=== PATIENT | female | born 1940 | race Caucasian/White ===

== ENCOUNTER 2016-06-12 14:45 | Inpatient (IN) | payer MEDICARE ==
[2016-06-12] VITALS (10 sets, daily range): BP systolic 132–177; BP diastolic 42–90
[~2016-06-12] VITALS: Ht 152.4 cm; Wt 78.9 kg
--- NOTE | ~2016-06-12 | CON ---
[place], [place] REPORT OF CONSULTATION NAME: PAUL BRAXTON I UNIT #: [id number] ROOM: 415 DOCTOR: HEATHER BLACK,TERRELL BIRTHDATE: [birth year] DOS: 06/15/2016 GASTROENDOSCOPIC REPORT HISTORY OF PRESENT ILLNESS: A 75-year-old patient who has presented with multiple medical problems, among which has been not feeling well, severe anemia, finding of H and H of 6 and 21, microcytic indices and status post multitransfusion, renal failure with BUN and creatinine of 54 and 5.7. Reticulocyte count of 2.0. CT scan of the chest and abdomen and pelvic, cholelithiasis, no hematoma, no distinct acute thoracic pathology. Urine culture benign. H and H post-transfusion 8 and 25. Renal ultrasound noticed increased thinning of the renal cortices was noticed. Comprehensive metabolic panel: Potassium 5.8. Liver function tests within normal limit. PAST MEDICAL HISTORY: Associated diabetes, anemia, renal failure. SOCIAL HISTORY: Nonsmoker, nonalcohol consumer. FAMILY HISTORY: Noncontributory. ALLERGIES: To no medication. PAST SURGICAL HISTORY: Noncontributory. MEDICATIONS: List has been reviewed. REVIEW OF SYSTEMS: In general, HEENT: Denies double vision, blurred vision. RESPIRATORY: Denies acute shortness of breath. CARDIOVASCULAR: Denies acute chest pain. DIGESTIVE SYSTEM: No hematemesis, no hematochezia. PHYSICAL EXAMINATION: VITAL SIGNS: Stable. HEENT: Head normocephalic, nontraumatic. Mouth and buccal mucosa benign. NECK: Supple, no thyromegaly. CHEST: Symmetric anatomy, equal expansion. No wheeze, no rhonchi. HEART: Normal sinus rhythm, no gallop, no murmur. ABDOMEN: Soft. No hepato-organomegaly. Bowel sounds present. No pulsatile mass. EXTREMITIES: No cyanosis, no pedal edema. NEUROLOGIC: Alert, oriented to time, place, person. IMPRESSION: Severe anemia, renal failure, diabetes mellitus. PLAN AND DISCUSSION: EGD, colonoscopy reassessment of the patient status post multitransfusion, workup in progress. [place], [place] REPORT OF CONSULTATION NAME: PAUL BRAXTON I UNIT #: [id number] ROOM: 415 DOCTOR: HEATHER BLACK,TERRELL BIRTHDATE: [birth year] TERRELL ROMERO MD CM:CONSTR:REPORT OF CONSULTATION 1225 06/16/16 0043 interface
--- NOTE | ~2016-06-12 | O ---
[place], [place] OPERATIVE NOTE NAME: PAUL BRAXTON I UNIT #: [id number] ROOM: 415 DOCTOR: TERRELL ROMERO MD BIRTHDATE: [birth year] DOS: A 75-year-old patient who has presented with chief complaint of epigastric abdominal pain, guaiac positivity, anemia, drop in H and H, status post transfusion. PROCEDURE: Today's procedure part of investigation is panendoscopy and colonoscopy. PREMEDICATION: Versed and Diprivan. SCOPE: Olympus forward-viewing gastroscope Q10 video. REPORT: After putting the patient in the left lateral position and after application of lubricant to the scope, the scope was introduced. Thereafter, under direct visualization, I advanced through the length of esophagus without difficulty. Small hiatal hernia with approximately 2 cm was noticed. Gastric pouch was entered. Gastritis, gastric erosions, degraded blood in the gastric pouch was identified. Duodenal bulb, second and third part within normal limits. Scope was gradually withdrawn from a lesser curvature after photographic series and biopsies. The patient tolerated the procedure well. IMPRESSION: Gastritis, gastric erosions, hiatal hernia. PLAN AND DISCUSSION: Protonix 40 mg daily. Supportive management. On the other hand we are going to proceed with colonoscopy. TERRELL ROMERO MD CM:OPRECORD:OPERATIVE NOTE 1251 1439 TERRELL ROMERO MD 06/15/16 1440 interface
--- NOTE | ~2016-06-12 | O ---
[place], [place] OPERATIVE NOTE NAME: PAUL BRAXTON I UNIT #: [id number] ROOM: 415 DOCTOR: TERRELL ROMERO MD BIRTHDATE: [birth year] DOS: This patient is a 75-year-old patient, who has presented with chief complaint of epigastric abdominal pain, anemia status post transfusion, GI bleed. PROCEDURE: Today's procedure part of investigation is colonoscopy plus polypectomy. PREMEDICATION: Versed and Diprivan. SCOPE: Olympus forward-viewing colonoscope 10L video. REPORT: After putting the patient in the left lateral position and after application of lubricant to rectal pouch and digital examination, scope was introduced. Thereafter, under direct visualization, I advanced through the length of colon without difficulty. Polypoid lesion broad base in sigmoid colon was identified with the snare was polypectomized and site was deeply coagulated. Base of the cecum explored, appendiceal orifice identified, and ileocecal valve was defined. The patient extubated, tolerated procedure well. IMPRESSION: Sigmoid colon polyp, status post snare polypectomy. PLAN AND DISCUSSION: This patient's source of GI bleed has been upper GI and she will be managed with Protonix 40 mg every day. I thank you very much indeed for your kind referral. TERRELL ROMERO MD CM:OPRECORD:OPERATIVE NOTE 1251 1440 TERRELL ROMERO MD 06/15/16 1441 interface
[2016-06-12 15:44] LABS: BASO % 0.2 % (0.0-1.0); EOS % 0.4 % (1.0-4.0); HEMATOCRIT 21.8 % (37.0-47.0); HEMOGLOBIN 6.7 g/dl (12.0-16.0); LYMPH # 0.7 10*3/uL (1.3-4.4); LYMPH % 15.6 % (27.0-41.0); MEAN CELL VOLUME 95.2 fl (81.0-99.0); MEAN CORPUSCULAR HGB 29.3 pg (27.0-31.0); MEAN CORPUSCULAR HGB CONC 30.7 g/dl (33.0-37.0); MONO # 0.4 10*3/uL (0.1-1.0); MONO % 9.1 % (3.0-9.0); NEUT # 3.4 10*3/uL (2.3-7.9); NEUT % 74.3 % (47.0-73.0); PLATELET COUNT AUTOMATED 271 10*3/uL (130-400); RED BLOOD COUNT 2.29 10*6/uL (4.10-5.10); RED CELL DISTRI WIDTH 15.7 % (0-14.5); WHITE BLOOD COUNT 4.6 10*3/uL (4.8-10.8)
[2016-06-12 15:59] LABS: ALBUMIN 2.5 gm/dl (3.1-4.5); BILIRUBIN, TOTAL 0.2 mg/dl (0.2-1.0); POTASSIUM 5.8 mmol/L (3.5-5.1)
[2016-06-12 16:08] LABS: BILIRUBIN NEGATIVE (NEGATIVE); BLOOD 1+ (NEGATIVE); CLARITY SL CLOUDY (CLEAR); COLOR YELLOW (YELLOW); GLUCOSE 2+ (NEGATIVE); KETONE NEGATIVE (NEGATIVE); LEUKO ESTERASE NEGATIVE (NEGATIVE); NITRITE NEGATIVE (NEGATIVE); PH 5.5 (5.0-9.0); PROTEIN 3+ (NEGATIVE); UROBILINOGEN 0.2 E.U./dl (0.2-1.0)
[2016-06-12 16:20] LABS: BACTERIA 1+; EPITHELIAL CELLS TNTC; URINE REFLEX COMMENT YES (NO); YEAST 2+
[2016-06-12 18:34] LABS: IRF 15.3 % (2.4-13.3); RET-He 31.2 pg (32.1-37.9); RETICULOCYTE % 2.2 % (0.50-2.50)
[2016-06-12] MEDS ORDERED: CARDURA4 MG PO (18:37)
[2016-06-12] MEDS ORDERED: AMLODIPINE BESY1 TAB PO (18:38)
[2016-06-12] MEDS ORDERED: LOPRESSOR100 M1 PO (18:39)
[2016-06-12] MEDS ORDERED: FEOSOL325 MG PO (18:43)
[2016-06-12] MEDS ORDERED: VITAMIN D1000 IU PO (18:44)
[2016-06-12] MEDS ORDERED: NOVOLOG 70/30 M10 ML SC (18:48)
[2016-06-12 18:56] LABS: IRON 29 ug/dL (50-170)
[2016-06-12 19:36] LABS: ALBUMIN 2.6 gm/dl (3.1-4.5); BILIRUBIN, TOTAL 0.2 mg/dl (0.2-1.0); POTASSIUM 5.8 mmol/L (3.5-5.1); TOTAL PROTEIN 6.1 gm/dL (6.4-8.2)
[2016-06-12 20:11] LABS: FERRITIN 66.5 ng/mL (10.0-291.0)
[2016-06-12 20:12] LABS: FOLIC ACID 13.41 ng/mL (>5.38)
[2016-06-13] VITALS: BP 157/48
[2016-06-13 00:48] LABS: CKMB 2.8 ng/ml (0.5-3.6)
[2016-06-13 00:50] LABS: TROPONIN I 0.087 ng/ml (<0.045)
[2016-06-13 04:00] VITALS: BP 163/57
[2016-06-13 06:27] LABS: BASO % 0.4 % (0.0-1.0); EOS # 0.1 10*3/uL (0.0-0.4); EOS % 2.3 % (1.0-4.0); HEMATOCRIT 22.4 % (37.0-47.0); HEMOGLOBIN 7.2 g/dl (12.0-16.0); LYMPH # 0.9 10*3/uL (1.3-4.4); LYMPH % 17.2 % (27.0-41.0); MEAN CELL VOLUME 94.1 fl (81.0-99.0); MEAN CORPUSCULAR HGB 30.3 pg (27.0-31.0); MEAN CORPUSCULAR HGB CONC 32.1 g/dl (33.0-37.0); MEAN PLATELET VOLUME 10.2 fl (9.6-12.3); MONO # 0.5 10*3/uL (0.1-1.0); NEUT # 3.7 10*3/uL (2.3-7.9); NEUT % 70.7 % (47.0-73.0); PLATELET COUNT AUTOMATED 264 10*3/uL (130-400); RED BLOOD COUNT 2.38 10*6/uL (4.10-5.10); WHITE BLOOD COUNT 5.2 10*3/uL (4.8-10.8)
[2016-06-13 06:38] LABS: CKMB 2.7 ng/ml (0.5-3.6)
[2016-06-13 06:48] LABS: TROPONIN I 0.061 ng/ml (<0.045)
[2016-06-13 06:52] LABS: INTERNATIONAL NORM RATIO 0.9 (2.0-3.5); PROTHROMBIN TIME 9.9 SECONDS (9.0-12.4)
[2016-06-13 06:56] LABS: ALBUMIN 2.2 gm/dl (3.1-4.5); BILIRUBIN, TOTAL 0.2 mg/dl (0.2-1.0); MAGNESIUM 2.1 mg/dL (1.5-2.1); PHOSPHOROUS 7.6 mg/dL (2.5-4.9); POTASSIUM 5.9 mmol/L (3.5-5.1); TOTAL PROTEIN 5.3 gm/dL (6.4-8.2)
[2016-06-13 07:02] LABS: FREE T4 0.84 ng/dl (0.76-1.46); THYROID STIM HORMONE (HS) 2.52 uIU/ml (0.358-4.75)
[2016-06-13 07:03] LABS: HEMOGLOBIN A1c 6.2 % (4.8-5.6)
[2016-06-13 07:57] LABS: VITAMIN D, 25-HYDROXY 11.5 ng/mL (30-100)
[2016-06-13 07:58] LABS: FOLIC ACID 11.59 ng/mL (>5.38)
[2016-06-13 08:00] VITALS: BP 159/76
[2016-06-13 09:05] LABS: BILIRUBIN NEGATIVE (NEGATIVE); BLOOD 1+ (NEGATIVE); CLARITY CLOUDY (CLEAR); COLOR YELLOW (YELLOW); GLUCOSE 1+ (NEGATIVE); KETONE NEGATIVE (NEGATIVE); LEUKO ESTERASE 1+ (NEGATIVE); NITRITE NEGATIVE (NEGATIVE); PROTEIN 3+ (NEGATIVE); SPECIFIC GRAVITY 1.015 (1.005-1.030); UROBILINOGEN 0.2 E.U./dl (0.2-1.0)
[2016-06-13 10:28] LABS: BACTERIA 3+; COARSE GRANULAR CAST 0-2; URINE REFLEX COMMENT YES (NO); WBC TNTC wbc/hpf (0-5)
[2016-06-13 12:00] VITALS: BP 140/43
[2016-06-13 12:43] LABS: TROPONIN I 0.042 ng/ml (<0.045)
[2016-06-13 16:00] VITALS: BP 125/80
[2016-06-13 20:00] VITALS: BP 151/58
[2016-06-14] VITALS (10 sets, daily range): BP systolic 137–168; BP diastolic 45–64
[2016-06-14 00:28] LABS: BILIRUBIN NEGATIVE (NEGATIVE); BLOOD TRACE-LYSED (NEGATIVE); CLARITY SL CLOUDY (CLEAR); COLOR YELLOW (YELLOW); GLUCOSE 2+ (NEGATIVE); KETONE NEGATIVE (NEGATIVE); LEUKO ESTERASE TRACE (NEGATIVE); NITRITE NEGATIVE (NEGATIVE); PH 5.5 (5.0-9.0); PROTEIN 3+ (NEGATIVE); UROBILINOGEN 0.2 E.U./dl (0.2-1.0)
[2016-06-14 00:37] LABS: BACTERIA 3+; EPITHELIAL CELLS 21-30; WBC 41-50 wbc/hpf (0-5)
[2016-06-14 00:38] LABS: URINE TP/CRE RATIO 7.3 (<0.21)
[2016-06-14 07:06] LABS: BASO % 0.4 % (0.0-1.0); EOS # 0.2 10*3/uL (0.0-0.4); EOS % 3.3 % (1.0-4.0); HEMATOCRIT 20.7 % (37.0-47.0); HEMOGLOBIN 6.5 g/dl (12.0-16.0); LYMPH # 1.1 10*3/uL (1.3-4.4); LYMPH % 25.1 % (27.0-41.0); MEAN CORPUSCULAR HGB 29.8 pg (27.0-31.0); MEAN CORPUSCULAR HGB CONC 31.4 g/dl (33.0-37.0); MEAN PLATELET VOLUME 10.5 fl (9.6-12.3); MONO # 0.5 10*3/uL (0.1-1.0); MONO % 11.5 % (3.0-9.0); NEUT # 2.7 10*3/uL (2.3-7.9); NEUT % 59.3 % (47.0-73.0); PLATELET COUNT AUTOMATED 272 10*3/uL (130-400); RED BLOOD COUNT 2.18 10*6/uL (4.10-5.10); WHITE BLOOD COUNT 4.5 10*3/uL (4.8-10.8)
[2016-06-14 07:35] LABS: POTASSIUM 4.9 mmol/L (3.5-5.1)
[2016-06-15] VITALS (7 sets, daily range): BP systolic 120–188; BP diastolic 42–66
[2016-06-15 05:53] LABS: POTASSIUM 4.4 mmol/L (3.5-5.1)
[2016-06-15 05:59] LABS: BASO % 0.3 % (0.0-1.0); EOS # 0.1 10*3/uL (0.0-0.4); EOS % 3.9 % (1.0-4.0); HEMATOCRIT 25.4 % (37.0-47.0); HEMOGLOBIN 8.2 g/dl (12.0-16.0); LYMPH # 0.8 10*3/uL (1.3-4.4); LYMPH % 21.3 % (27.0-41.0); MEAN CELL VOLUME 93.4 fl (81.0-99.0); MEAN CORPUSCULAR HGB 30.1 pg (27.0-31.0); MEAN CORPUSCULAR HGB CONC 32.3 g/dl (33.0-37.0); MEAN PLATELET VOLUME 10.6 fl (9.6-12.3); MONO # 0.7 10*3/uL (0.1-1.0); NEUT % 55.9 % (47.0-73.0); PLATELET COUNT AUTOMATED 261 10*3/uL (130-400); RED BLOOD COUNT 2.72 10*6/uL (4.10-5.10); RED CELL DISTRI WIDTH 14.9 % (0-14.5); WHITE BLOOD COUNT 3.6 10*3/uL (4.8-10.8)
[2016-06-15 21:10] LABS: ANTI-THROMBIN III ACTIVITY 112 % (75-135); LUPUS DRVVT 47.9 sec (0.0-47.0); PROTEIN S, FREE 117 % (57-157); PROTEIN S, TOTAL 102 % (60-150); PTT-LA 35.1 sec (0.0-43.6)
[2016-06-16] VITALS: BP 155/47
[2016-06-16 06:30] LABS: HEPATITIS C VIRUS ANTIBODY 0.1 s/co (0.0-0.9)
[2016-06-16 07:34] LABS: BASO % 0.2 % (0.0-1.0); EOS # 0.1 10*3/uL (0.0-0.4); EOS % 3.1 % (1.0-4.0); HEMATOCRIT 24.2 % (37.0-47.0); HEMOGLOBIN 7.8 g/dl (12.0-16.0); LYMPH # 0.9 10*3/uL (1.3-4.4); LYMPH % 19.7 % (27.0-41.0); MEAN CORPUSCULAR HGB 29.7 pg (27.0-31.0); MEAN CORPUSCULAR HGB CONC 32.2 g/dl (33.0-37.0); MEAN PLATELET VOLUME 10.7 fl (9.6-12.3); MONO # 0.7 10*3/uL (0.1-1.0); MONO % 14.6 % (3.0-9.0); NEUT # 2.8 10*3/uL (2.3-7.9); PLATELET COUNT AUTOMATED 262 10*3/uL (130-400); RED BLOOD COUNT 2.63 10*6/uL (4.10-5.10); RED CELL DISTRI WIDTH 14.8 % (0-14.5); WHITE BLOOD COUNT 4.5 10*3/uL (4.8-10.8)
[2016-06-16 08:00] VITALS: BP 186/67
[2016-06-16 08:12] LABS: COMPLEMENT C4 001834 26 mg/dL (14-44)
[2016-06-16 08:41] VITALS: BP 134/60
[2016-06-16 08:43] LABS: ALBUMIN 2.3 gm/dl (3.1-4.5); PHOSPHOROUS 7.8 mg/dL (2.5-4.9); POTASSIUM 4.3 mmol/L (3.5-5.1)
[2016-06-16 12:00] VITALS: BP 149/58
[2016-06-16 13:10] LABS: LUPUS REFLEX INTERPRETATION Comment: (.)
[2016-06-16 16:00] VITALS: BP 167/60
[2016-06-16 16:10] LABS: FREE KAPPA LIGHT CHAINS 141.74 mg/L (3.30-19.40); KAPPA/LAMBDA RATIO 2.06 (0.26-1.65)
[2016-06-16 17:07] LABS: ALBUMIN, URINE 59.3 % (.); GAMMA GLOBULIN, URINE 13.4 % (.); M-SPIKE, % Not Observed % (Not Observed); PROTEIN,TOTAL - URINE RANDOM 381.1 mg/dL (Not Estab.)
[2016-06-16 20:00] VITALS: BP 157/56
[2016-06-17] VITALS: BP 152/49
[2016-06-17 06:10] LABS: BASO % 0.5 % (0.0-1.0); EOS # 0.1 10*3/uL (0.0-0.4); EOS % 1.3 % (1.0-4.0); HEMATOCRIT 24.4 % (37.0-47.0); LYMPH # 0.5 10*3/uL (1.3-4.4); LYMPH % 13.3 % (27.0-41.0); MEAN CELL VOLUME 92.8 fl (81.0-99.0); MEAN CORPUSCULAR HGB 30.4 pg (27.0-31.0); MEAN CORPUSCULAR HGB CONC 32.8 g/dl (33.0-37.0); MEAN PLATELET VOLUME 10.6 fl (9.6-12.3); MONO # 0.6 10*3/uL (0.1-1.0); MONO % 15.1 % (3.0-9.0); NEUT # 2.6 10*3/uL (2.3-7.9); NEUT % 69.3 % (47.0-73.0); PLATELET COUNT AUTOMATED 243 10*3/uL (130-400); RED BLOOD COUNT 2.63 10*6/uL (4.10-5.10); RED CELL DISTRI WIDTH 14.6 % (0-14.5); WHITE BLOOD COUNT 3.8 10*3/uL (4.8-10.8)
[2016-06-17 06:26] LABS: ALBUMIN 2.2 gm/dl (3.1-4.5); MAGNESIUM 1.7 mg/dL (1.5-2.1); PHOSPHOROUS 6.6 mg/dL (2.5-4.9)
[2016-06-17 08:00] VITALS: BP 142/56
[2016-06-17 11:07] LABS: GLOMERULAR BASEMENT 082719 3 units (0-20)
[2016-06-17 12:00] VITALS: BP 138/57
[2016-06-17] MEDS ORDERED: CALCIUM CARBON500 M1 PO (15:19)
[2016-06-17] MEDS ORDERED: FUROSEMIDE40 MG PO (15:19)
[2016-06-17] MEDS ORDERED: VITAMIN D50000 I3 PO (15:19)
[2016-06-17 16:00] VITALS: BP 135/59
== END 2016-06-17 16:52 | disposition home or self-care (01) | DRG 377 ==
LOC: ED 14:45 → 4E 17:04 → EDHOLD 17:04 → ICCU 18:07 → 4E 06-13 13:27
PROVIDERS: Emergency Medicine; Family Medicine; Hospitalist; Internal Medicine; Internal Medicine Hospice and Palliative Medicine; Internal Medicine Nephrology
PROC: 30233N1 Transfusion of Nonautologous Red Blood Cells into Peripheral Vein, Percutaneous Approach (ICD-10-PCS; principal; 2016-06-12)
PROC: 0DBN8ZZ Excision of Sigmoid Colon, Via Natural or Artificial Opening Endoscopic (ICD-10-PCS; 2016-06-15)
PROC: 0DB68ZX Excision of Stomach, Via Natural or Artificial Opening Endoscopic, Diagnostic (ICD-10-PCS; 2016-06-15)
DX: K29.01 Acute gastritis with bleeding (principal); N17.0 Acute kidney failure with tubular necrosis; E43 Unspecified severe protein-calorie malnutrition; E87.2 Acidosis; N25.81 Secondary hyperparathyroidism of renal origin; E87.5 Hyperkalemia; E11.65 Type 2 diabetes mellitus with hyperglycemia; D50.9 Iron deficiency anemia, unspecified; E55.9 Vitamin D deficiency, unspecified; I10 Essential (primary) hypertension; R00.1 Bradycardia, unspecified; E83.39 Other disorders of phosphorus metabolism; R80.9 Proteinuria, unspecified; K44.9 Diaphragmatic hernia without obstruction or gangrene; Z82.49 Family history of ischemic heart disease and other diseases of the circulatory system; Z84.89 Family history of other specified conditions; Z79.4 Long term (current) use of insulin; Z79.899 Other long term (current) drug therapy; Z98.49 Cataract extraction status, unspecified eye; Z68.33 Body mass index [BMI] 33.0-33.9, adult

== ENCOUNTER → 2016-06-24 | Outpatient (CLI) | payer MEDICARE ==
[~2016-06-24] MED LIST: AMLODIPINE BESY1 TAB PO; CALCIUM CARBON500 M1 PO; CARDURA4 MG PO; FEOSOL325 MG PO; FUROSEMIDE40 MG PO; LOPRESSOR100 M1 PO; NOVOLOG 70/30 M10 ML SC; VITAMIN D1000 IU PO; VITAMIN D50000 I3 PO
[2016-06-24 11:14] LABS: BASO % 0.2 % (0.0-1.0); EOS # 0.1 10*3/uL (0.0-0.4); EOS % 2.4 % (1.0-4.0); HEMATOCRIT 23.8 % (37.0-47.0); HEMOGLOBIN 7.4 g/dl (12.0-16.0); LYMPH % 17.6 % (27.0-41.0); MEAN CELL VOLUME 95.2 fl (81.0-99.0); MEAN CORPUSCULAR HGB 29.6 pg (27.0-31.0); MEAN CORPUSCULAR HGB CONC 31.1 g/dl (33.0-37.0); MEAN PLATELET VOLUME 11.2 fl (9.6-12.3); MONO # 0.7 10*3/uL (0.1-1.0); NEUT # 3.9 10*3/uL (2.3-7.9); NEUT % 67.3 % (47.0-73.0); PLATELET COUNT AUTOMATED 276 10*3/uL (130-400); RED CELL DISTRI WIDTH 14.5 % (0-14.5); WHITE BLOOD COUNT 5.7 10*3/uL (4.8-10.8)
[2016-06-24 11:40] LABS: ALBUMIN 2.2 gm/dl (3.1-4.5); PHOSPHOROUS 6.2 mg/dL (2.5-4.9); POTASSIUM 4.6 mmol/L (3.5-5.1)
== END | disposition home or self-care (01) ==
LOC: LAB 10:46
PROVIDERS: Internal Medicine
DX: N17.0 Acute kidney failure with tubular necrosis (principal)

== ENCOUNTER 2016-07-05 11:53 | Inpatient (IN) | payer MEDICARE ==
[~2016-07-05] VITALS: Ht 152.4 cm; Wt 89.9 kg
[2016-07-05] VITALS (8 sets, daily range): BP systolic 114–142; BP diastolic 40–71
--- NOTE | ~2016-07-05 | CON ---
[place], [place] REPORT OF CONSULTATION NAME: PAUL BRAXTON I UNIT #: [id number] ROOM: [facility] DOCTOR: MERLIN BASS MD BIRTHDATE: [birth year] DOS: 07/05/2016 REASON FOR CONSULTATION: Acute kidney injury. HISTORY OF PRESENT ILLNESS: The patient is a 75-year-old female, it seems she gives a history of longstanding diabetes, hypertension, anemia and recent diagnosis of chronic kidney disease. She was just here in the hospital, not too long ago, was seen by my partner, Dr. Iraheta. Her creatinine was in the 5s at that time. There had been some discussions about a renal biopsy and further workup. Apparently, she was supposed to see him in the office on Wednesday. The details are not quite clear. She presented to the hospital with fatigue, dizziness that had been ongoing for a week. Apparently, she was bradycardic on arrival and was given atropine. She presented to the hospital. The patient had a heart rate in the 40s, potassium of 5.5, and carbon dioxide of 13. BUN 106, creatinine of 7.77. Her hemoglobin was 6.7. When I had seen her, she was being transfused. She was given a dose of morphine and was little bit confused. Her daughters were at bedside. They had reported that she has not been feeling well for the past few weeks particularly and has had a poor appetite and some intermittent nausea. Apparently, she has not gotten blood work routinely, and true baseline creatinine not been clear. According to the patient and her family, she has had a history of longstanding diabetes for well over 20 years with a history of retinopathy. On her last visit, she did have intact PTH level that was noted to be over 500. I am not clear what other urological data was obtained if any. Currently, she was awake, but somewhat confused. She was dyspneic at times, but no fevers, chills, night sweats were noted. ALLERGIES: No known drug allergies. MEDICATIONS: On admission included amlodipine, calcium, doxazosin, vitamin D, iron, Lasix, metoprolol. PAST MEDICAL HISTORY: 1. Recent acute kidney injury is noted with likely CKD. 2. History of longstanding diabetes for over 20 years with a history of retinopathy. 3. Cataracts. 4. Anemia with GI bleeding. 5. Hypertension. 6. Proteinuria, which apparently nephrotic range. 7. Secondary hyperparathyroidism. 8. Vitamin D deficiency. 9. History of . FAMILY HISTORY: Negative for chronic kidney disease. Otherwise, noncontributory. SOCIAL HISTORY: No current tobacco, alcohol or illicit drugs. REVIEW OF SYSTEMS: As per HPI, otherwise a 10-point review of systems was reviewed and was negative or somewhat limited. [place], [place] REPORT OF CONSULTATION NAME: PAUL BRAXTON I UNIT #: [id number] ROOM: [facility] DOCTOR: MERLIN BASS MD BIRTHDATE: [birth year] PHYSICAL EXAMINATION: VITAL SIGNS: Temperature 97.6, pulse was in the 40s, respiratory rate 16, blood pressure 142/64. GENERAL: She is awake, alert, somewhat confused, mildly agitated. No acute respiratory distress. HEENT: Shows no JVD. Sclerae are anicteric. Mucous membranes appear dry. Pharynx is clear. NECK: Supple, trachea midline. There is no neck lymphadenopathy. There is no thyromegaly. LUNGS: Diminished breath sounds. No appreciable wheezes, not using accessory muscles for respiration. HEART: Normal S1, S2. I do not appreciate rub, thrill or gallop. ABDOMEN: Soft, nontender. There is no organomegaly or rigidity. There is no rebound or guarding. There is no CVA tenderness. EXTREMITIES: Trace edema. There is no lower extremity lymphadenopathy. Distal pulses are 2+. SKIN: Showed no overt rash. There is no petechiae or purpura. Skin temperature is warm. NEUROLOGIC: She was confused, but awake, alert today, answer questions to some degree appropriately. She was following commands. DIAGNOSTIC DATA: Reviewed included the hemoglobin 6.7, white count of 5.8, platelets of 243. Sodium 143, potassium 5.5, CO2 of 13. BUN 106, creatinine 7.77, glucose 152, calcium 7.2, magnesium 3.0, albumin of 2.6. It seems she did have a renal ultrasound on her last admission, which did not reveal any evidence of obstruction from what I can gather. It did show increased echogenicity and thinning in the renal cortices. She did have urine protein and creatinine ratio that was noted to be over 7 grams on her last admission. IMPRESSION: 1. Acute versus chronic kidney disease. The patient's baseline creatinine is not clear, but I do believe the patient has had progressive chronic kidney disease with now an element of uremic symptoms. Her true etiology is not clear; however, with her history of longstanding diabetes with nephrotic range proteinuria with retinopathy, likely this is related to diabetic nephropathy. 2. Anemia, likely multifactorial with likely an element of anemia of chronic disease. 3. Longstanding diabetes. 4. Metabolic acidosis. 5. Secondary hyperparathyroidism. 6. 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 7. Mild hyperkalemia, multifactorial in etiology. PLAN: 1. I had a lengthy discussion with the patient's daughters at bedside as well as the patient herself. I do believe this is likely chronic and has progressed. At this point, I do believe dialysis will be needed once access is obtained. This should be performed within the next 24 to 48 hours. We will attempt to have access obtained; however, this will be delayed. She may require transfer [place], [place] REPORT OF CONSULTATION NAME: PAUL BRAXTON I UNIT #: [id number] ROOM: [facility] DOCTOR: MERLIN BASS MD BIRTHDATE: [birth year] to a tertiary care center for further treatment. 2. The patient is being transfused. Transfuse as needed. Watch her volume status carefully. She likely will require erythropoietin stimulating agents at some point. 3. Dose medications for current creatinine clearance/end-stage renal disease. 4. Would give sodium bicarbonate in view of her acidosis and mild hyperkalemia. Labs will be checked in a few hours. 5. Further workup and plans will be considered going forward. I did explain this in detail to the patient's family in regards to renal biopsy and other potential plans for continued dialysis as an outpatient. We will attempt to have her stabilized first and then begin to work on those items at a later date. Thank you for this consultation. We will follow with you. MERLIN BASS MD CM:CONSTR:REPORT OF CONSULTATION 1754 07/06/1624 interface
[2016-07-05 12:14] LABS: BASO % 0.3 % (0.0-1.0); EOS # 0.1 10*3/uL (0.0-0.4); EOS % 1.2 % (1.0-4.0); HEMATOCRIT 21.8 % (37.0-47.0); HEMOGLOBIN 6.7 g/dl (12.0-16.0); LYMPH # 0.8 10*3/uL (1.3-4.4); MEAN CELL VOLUME 96.9 fl (81.0-99.0); MEAN CORPUSCULAR HGB 29.8 pg (27.0-31.0); MEAN CORPUSCULAR HGB CONC 30.7 g/dl (33.0-37.0); MEAN PLATELET VOLUME 11.2 fl (9.6-12.3); MONO # 0.5 10*3/uL (0.1-1.0); MONO % 9.3 % (3.0-9.0); NEUT # 4.4 10*3/uL (2.3-7.9); NEUT % 75.5 % (47.0-73.0); PLATELET COUNT AUTOMATED 243 10*3/uL (130-400); RED BLOOD COUNT 2.25 10*6/uL (4.10-5.10); RED CELL DISTRI WIDTH 15.2 % (0-14.5); WHITE BLOOD COUNT 5.8 10*3/uL (4.8-10.8)
[2016-07-05 12:26] LABS: PROTHROMBIN TIME 10.6 SECONDS (9.0-12.4)
[2016-07-05 12:28] LABS: ALBUMIN 2.6 gm/dl (3.1-4.5); BILIRUBIN, TOTAL 0.2 mg/dl (0.2-1.0); POTASSIUM 5.5 mmol/L (3.5-5.1)
[2016-07-05 12:29] LABS: TROPONIN I 0.017 ng/ml (<0.045)
[2016-07-05] MEDS ORDERED: METHOCARBAMOL500 M1 PO (17:27)
[2016-07-05] MEDS ORDERED: ACETAMINOPHEN-H1 TA2 PO (17:27)
[2016-07-05] MEDS ORDERED: MORPHINE SULF2 MG/M1 IV (17:27)
[2016-07-05] MEDS ORDERED: ONDANSETRON H2 MG/ML IV (17:27)
[2016-07-05] MEDS ORDERED: HUMALOG100 U/ML SC (17:27)
[2016-07-05] MEDS ORDERED: TEMAZEPAM15 M1 PO (17:27)
[2016-07-05] MEDS ORDERED: TYLENOL325 M2 PO (17:27)
[2016-07-05 18:31] LABS: CKMB 3.8 ng/ml (0.5-3.6); POTASSIUM 5.5 mmol/L (3.5-5.1); TROPONIN I 0.02 ng/ml (<0.045)
[2016-07-05 19:12] LABS: BASO % 0.2 % (0.0-1.0); EOS # 0.1 10*3/uL (0.0-0.4); EOS % 1.5 % (1.0-4.0); HEMATOCRIT 25.6 % (37.0-47.0); HEMOGLOBIN 8.1 g/dl (12.0-16.0); LYMPH # 0.8 10*3/uL (1.3-4.4); LYMPH % 15.4 % (27.0-41.0); MEAN CELL VOLUME 94.1 fl (81.0-99.0); MEAN CORPUSCULAR HGB 29.8 pg (27.0-31.0); MEAN CORPUSCULAR HGB CONC 31.6 g/dl (33.0-37.0); MEAN PLATELET VOLUME 11.4 fl (9.6-12.3); MONO # 0.5 10*3/uL (0.1-1.0); MONO % 8.9 % (3.0-9.0); NEUT % 73.3 % (47.0-73.0); PLATELET COUNT AUTOMATED 243 10*3/uL (130-400); RED BLOOD COUNT 2.72 10*6/uL (4.10-5.10); RED CELL DISTRI WIDTH 15.1 % (0-14.5); WHITE BLOOD COUNT 5.4 10*3/uL (4.8-10.8)
[2016-07-05 19:24] LABS: ALBUMIN 2.7 gm/dl (3.1-4.5); POTASSIUM 5.3 mmol/L (3.5-5.1)
[2016-07-05 19:32] LABS: PHOSPHOROUS 8.7 mg/dL (2.5-4.9)
== END 2016-07-05 20:52 | disposition short-term general hospital (02) | DRG 682 ==
LOC: ED 11:53 → ICCU 12:36 → EDHOLD 12:36 → ICCU 13:04
PROVIDERS: Emergency Medicine; Family Medicine; Internal Medicine; Internal Medicine Nephrology
PROC: 30233N1 Transfusion of Nonautologous Red Blood Cells into Peripheral Vein, Percutaneous Approach (ICD-10-PCS; principal; 2016-07-05)
DX: I12.0 Hypertensive chronic kidney disease with stage 5 chronic kidney disease or end stage renal disease (principal); N17.0 Acute kidney failure with tubular necrosis; E43 Unspecified severe protein-calorie malnutrition; G93.49 Other encephalopathy; N18.6 End stage renal disease; E87.2 Acidosis; N25.81 Secondary hyperparathyroidism of renal origin; R00.1 Bradycardia, unspecified; H26.9 Unspecified cataract; E87.5 Hyperkalemia; D50.9 Iron deficiency anemia, unspecified; E55.9 Vitamin D deficiency, unspecified; E11.22 Type 2 diabetes mellitus with diabetic chronic kidney disease; Z82.49 Family history of ischemic heart disease and other diseases of the circulatory system; Z79.4 Long term (current) use of insulin; Z68.38 Body mass index [BMI] 38.0-38.9, adult

== ENCOUNTER 2017-10-04 16:01 | Emergency (ER) | payer MEDICARE ==
[~2017-10-04] VITALS: Ht 152.4 cm; Wt 87.1 kg
--- NOTE | ~2017-10-04 | EKG ---
[place], [place] ELECTROCARDIOGRAM REPORT NAME: PAUL BRAXTON I UNIT #: [id number] ROOM: DOCTOR: EPIPHANY DRAFT REPORT BIRTHDATE: [birth year] [facility] Test Date: 2017-10-04 Test Time: 17:32:48 Pat Name: PAUL BRAXTON Department: ER Room: Gender: F Certified Surgical Technician: EKG.TN : 1940 Requested By: KASANDRA COBB DNP Order Number: [id number] Reading MD: Elkin Amador MD Measurements Intervals [place] Rate: 59 P: 45 [place]: 164 QRS: -25 QRSD: 96 T: 54 QT: 455 QTc: 451 Interpretive Statements Sinus rhythm Borderline left axis deviation Abnormal R-wave progression, late transition Electronically Signed On 10-05-2017 8:01:39 PDT by Elkin Amador MD CM:EKGRPT:ELECTROCARDIOGRAM REPORT 1732 [id number] KASANDRA COBB DNP EPIPHANY DRAFT REPORT KASANDRA COBB DNP
[~2017-10-04 16:01] MED LIST changes: +ACETAMINOPHEN-H1 TA2 PO; +HUMALOG100 U/ML SC; +METHOCARBAMOL500 M1 PO; +MORPHINE SULF2 MG/M1 IV; +ONDANSETRON H2 MG/ML IV; +TEMAZEPAM15 M1 PO; +TYLENOL325 M2 PO
[2017-10-04 17:21] LABS: BASO % 0.2 % (0.0-1.0); EOS % 0.3 % (1.0-4.0); HEMATOCRIT 33.8 % (37.0-47.0); HEMOGLOBIN 11.1 g/dl (12.0-16.0); LYMPH # 0.3 10*3/uL (1.3-4.4); LYMPH % 2.3 % (27.0-41.0); MEAN CELL VOLUME 101.5 fl (81.0-99.0); MEAN CORPUSCULAR HGB 33.3 pg (27.0-31.0); MEAN CORPUSCULAR HGB CONC 32.8 g/dl (33.0-37.0); MEAN PLATELET VOLUME 10.7 fl (9.6-12.3); MONO % 8.9 % (3.0-9.0); NEUT # 10.2 10*3/uL (2.3-7.9); NEUT % 87.8 % (47.0-73.0); PLATELET COUNT AUTOMATED 168 10*3/uL (130-400); RED BLOOD COUNT 3.33 10*6/uL (4.10-5.10); WHITE BLOOD COUNT 11.6 10*3/uL (4.8-10.8)
[2017-10-04 17:30] LABS: ACT PARTIAL THROMBO TIME 24.3 SECONDS (20.8-31.5)
[2017-10-04 17:40] LABS: ALBUMIN 2.8 gm/dl (3.1-4.5); CREATININE 3.4 mg/dL (0.55-1.02); TOTAL PROTEIN 6.5 gm/dL (6.4-8.2); TROPONIN I 0.022 ng/ml (<0.045)
[2017-10-04 17:49] LABS: BILIRUBIN NEGATIVE (NEGATIVE); BLOOD TRACE-INTACT (NEGATIVE); CLARITY CLOUDY (CLEAR); COLOR YELLOW (YELLOW); GLUCOSE 2+ (NEGATIVE); KETONE NEGATIVE (NEGATIVE); LEUKO ESTERASE 2+ (NEGATIVE); NITRITE NEGATIVE (NEGATIVE); UROBILINOGEN 0.2 E.U./dl (0.2-1.0)
[2017-10-04 17:58] LABS: RBC 0-2 rbc/hpf (0-2)
[2017-10-04 17:59] LABS: BACTERIA 2+; EPITHELIAL CELLS TNTC; MUCOUS TRACE
== END 2017-10-04 18:40 | disposition home or self-care (01) ==
LOC: ED 16:01
PROVIDERS: Nurse Practitioner Family
DX: R53.1 Weakness (principal); E11.22 Type 2 diabetes mellitus with diabetic chronic kidney disease; N18.9 Chronic kidney disease, unspecified; Z99.2 Dependence on renal dialysis; Z79.4 Long term (current) use of insulin

== ENCOUNTER 2017-10-12 09:38 | Inpatient (IN) | payer MEDICARE ==
[~2017-10-12] VITALS: Ht 152.4 cm; Wt 93.2 kg
--- NOTE | ~2017-10-12 | PR ---
[place], [place] PROGRESS NOTE NAME: PAUL BRATXON I UNIT #: [id number] ROOM: 522 DOCTOR: KALI BLACK,MERLIN Fisher BIRTHDATE: [birth year] DOS: SUBJECTIVE: The patient was seen and examined. She is awake and alert. She feels well. She denies shortness of breath. She denies fevers, chills or night sweats. PHYSICAL EXAMINATION: VITAL SIGNS: Temperature 98.1, pulse 60, respiration rate 20, blood pressure 154/44. GENERAL: She is awake and alert, no acute distress. HEENT: Shows no JVD. LUNGS: Clear. HEART: S1, S2. No rub. ABDOMEN: Soft, nontender. EXTREMITIES: Showed no edema. SKIN: Showed no rash. LABORATORY DATA: Most recent labs from yesterday showed creatinine of 7.7, BUN of 83, potassium 4.3. CK level 547 from today. The patient's CK level was 205. ASSESSMENT AND PLAN: 1. End-stage renal disease, on hemodialysis, Wednesday and Wednesday. The patient will have dialysis on Wednesday as per her normal schedule. Her tunneled dialysis catheter was removed without any problems. 2. Anemia. Continue as needed, erythropoietin stimulating agents with dialysis. 3. Rhabdomyolysis. The patient's CK levels are coming down, they are only mildly elevated at this point. 4. Hypertension. Continue medications. 5. Hyperphosphatemia. Continue binders with meals. From a renal standpoint, the patient is acceptable for discharge. She will return to the D[facility] Clinic on Wednesday as per her normal schedule for dialysis. MERLIN BASS MD CM:PNTRANS 1334 1629 MERLIN BASS MD 10/16/17 1626 interface
--- NOTE | ~2017-10-12 | EKG ---
[place], [place] ELECTROCARDIOGRAM REPORT NAME: PAUL BRAXTON I UNIT #: [id number] ROOM: 522 DOCTOR: EPIPHANY DRAFT REPORT BIRTHDATE: [birth year] [facility] Test Date: 2017-10-15 Test Time: 09:56:41 Pat Name: PAUL BRAXTON Department: Room: 522 1 Gender: F Phlebotomy Tech: : 1940 Requested By: DAVIN MUNIZ Order Number: [id number] Reading MD: Daniel Mccain MD Measurements Intervals [place] Rate: 46 P: 55 [place]: 185 QRS: -22 QRSD: 105 T: 88 QT: 540 QTc: 473 Interpretive Statements Sinus bradycardia Borderline left axis deviation Compared to ECG 10/04/2017 17:32:48 Sinus rhythm no longer present Electronically Signed On 10-15-2017 13:43:43 PDT by Daniel Mccain MD CM:EKGRPT:ELECTROCARDIOGRAM REPORT [id number] [id number] DAVIN MUNIZ MD EPIPHANY DRAFT REPORT DAVIN MUNIZ MD
[2017-10-12 09:39] VITALS: BP 104/48
[2017-10-12 10:16] LABS: HEMATOCRIT 32.1 % (37.0-47.0); HEMOGLOBIN 10.5 g/dl (12.0-16.0); MEAN CELL VOLUME 101.6 fl (81.0-99.0); MEAN CORPUSCULAR HGB 33.2 pg (27.0-31.0); MEAN CORPUSCULAR HGB CONC 32.7 g/dl (33.0-37.0); MEAN PLATELET VOLUME 11.5 fl (9.6-12.3); PLATELET COUNT AUTOMATED 157 10*3/uL (130-400); RED BLOOD COUNT 3.16 10*6/uL (4.10-5.10); RED CELL DISTRI WIDTH 13.1 % (0-14.5); WHITE BLOOD COUNT 22.5 10*3/uL (4.8-10.8)
[2017-10-12 10:29] LABS: INTERNATIONAL NORM RATIO 1.1 (2.0-3.5)
[2017-10-12 10:30] LABS: ALBUMIN 2.6 gm/dl (3.1-4.5); CREATININE 4.82 mg/dL (0.55-1.02); POTASSIUM 4.1 mmol/L (3.5-5.1); TOTAL PROTEIN 6.2 gm/dL (6.4-8.2)
[2017-10-12 10:48] LABS: TOTAL CELLS COUNTED 100 #CELLS; TOXIC GRANULATION SLIGHT
[2017-10-12 10:49] LABS: PLATELET SUFFICIENCY NORMAL (NORMAL); VACUOLATION OF NEUTROPHILS SLIGHT
[2017-10-12 11:32] VITALS: BP 104/45
[2017-10-12 12:04] LABS: BILIRUBIN 1+ (NEGATIVE); BLOOD 2+ (NEGATIVE); CLARITY CLOUDY (CLEAR); COLOR YELLOW (YELLOW); GLUCOSE 1+ (NEGATIVE); KETONE NEGATIVE (NEGATIVE); LEUKO ESTERASE 2+ (NEGATIVE); NITRITE NEGATIVE (NEGATIVE); SPECIFIC GRAVITY 1.015 (1.005-1.030); UROBILINOGEN 0.2 E.U./dl (0.2-1.0)
[2017-10-12 12:14] LABS: BACTERIA 4+; WBC TNTC wbc/hpf (0-5)
[2017-10-12 12:16] LABS: RBC 21-30 rbc/hpf (0-2)
[2017-10-12 12:55] VITALS: BP 104/45
[2017-10-12 13:10] VITALS: BP 104/65
[2017-10-12] MEDS ORDERED: CALCIUM ACETAT667 M2 PO (15:12)
[2017-10-12] MEDS ORDERED: Lopressor25 MG PO (15:13)
[2017-10-12] MEDS ORDERED: LASIX40 MG PO (15:13)
[2017-10-12] MEDS ORDERED: PROPAFENONE HC150 MG PO (15:14)
[2017-10-12] MEDS ORDERED: CARDURA4 MG PO (15:14)
[2017-10-12] MEDS ORDERED: NOVOLIN 70100 UNIT/1 SC ×2 (15:16→15:17)
[2017-10-12] MEDS ORDERED: ELIQUIS5 M1 PO (15:17)
[2017-10-12] MEDS ORDERED: LISINOPRIL5 MG PO (15:18)
[2017-10-12 16:00] VITALS: BP 96/70
[2017-10-12 20:00] VITALS: BP 78/42; BP 82/40
[2017-10-13] VITALS: BP 106/45
[2017-10-13 06:31] LABS: BASO % 0.2 % (0.0-1.0); EOS # 0.1 10*3/uL (0.0-0.4); EOS % 0.6 % (1.0-4.0); HEMATOCRIT 31.6 % (37.0-47.0); HEMOGLOBIN 10.3 g/dl (12.0-16.0); LYMPH # 1.4 10*3/uL (1.3-4.4); LYMPH % 8.2 % (27.0-41.0); MEAN CELL VOLUME 102.6 fl (81.0-99.0); MEAN CORPUSCULAR HGB 33.4 pg (27.0-31.0); MEAN CORPUSCULAR HGB CONC 32.6 g/dl (33.0-37.0); MEAN PLATELET VOLUME 12.6 fl (9.6-12.3); MONO % 5.8 % (3.0-9.0); NEUT # 14.4 10*3/uL (2.3-7.9); NEUT % 83.8 % (47.0-73.0); PLATELET COUNT AUTOMATED 150 10*3/uL (130-400); RED BLOOD COUNT 3.08 10*6/uL (4.10-5.10); RED CELL DISTRI WIDTH 13.3 % (0-14.5); WHITE BLOOD COUNT 17.2 10*3/uL (4.8-10.8)
[2017-10-13 06:54] LABS: ALBUMIN 2.4 gm/dl (3.1-4.5); CREATININE 5.87 mg/dL (0.55-1.02); PHOSPHOROUS 4.1 mg/dL (2.5-4.9); POTASSIUM 3.6 mmol/L (3.5-5.1); TOTAL PROTEIN 5.9 gm/dL (6.4-8.2)
[2017-10-13 07:01] LABS: FREE T4 1.14 ng/dl (0.76-1.46); THYROID STIM HORMONE (HS) 1.98 uIU/ml (0.358-4.75)
[2017-10-13 07:52] LABS: VITAMIN D, 25-HYDROXY 5.6 ng/mL (30-100)
[2017-10-13 12:00] VITALS: BP 90/50
[2017-10-13 16:00] VITALS: BP 100/62
[2017-10-13 20:00] VITALS: BP 109/41; BP 110/46
[2017-10-14] VITALS: BP 129/39
[2017-10-14 05:58] LABS: CREATININE 7.03 mg/dL (0.55-1.02)
[2017-10-14 06:13] LABS: BASO % 0.2 % (0.0-1.0); EOS # 0.2 10*3/uL (0.0-0.4); EOS % 1.8 % (1.0-4.0); HEMATOCRIT 30.6 % (37.0-47.0); HEMOGLOBIN 9.7 g/dl (12.0-16.0); LYMPH # 1.7 10*3/uL (1.3-4.4); LYMPH % 13.9 % (27.0-41.0); MEAN CORPUSCULAR HGB 32.7 pg (27.0-31.0); MEAN CORPUSCULAR HGB CONC 31.7 g/dl (33.0-37.0); MEAN PLATELET VOLUME 12.4 fl (9.6-12.3); MONO # 0.9 10*3/uL (0.1-1.0); MONO % 7.4 % (3.0-9.0); NEUT # 9.4 10*3/uL (2.3-7.9); NEUT % 75.3 % (47.0-73.0); PLATELET COUNT AUTOMATED 143 10*3/uL (130-400); RED BLOOD COUNT 2.97 10*6/uL (4.10-5.10); RED CELL DISTRI WIDTH 13.2 % (0-14.5); WHITE BLOOD COUNT 12.5 10*3/uL (4.8-10.8)
[2017-10-14 08:00] VITALS: BP 149/40
[2017-10-14 12:00] VITALS: BP 186/50
[2017-10-14 16:00] VITALS: BP 166/48
[2017-10-14 20:00] VITALS: BP 150/88
[2017-10-15] VITALS (9 sets, daily range): BP systolic 104–171; BP diastolic 37–69
[2017-10-15 06:39] LABS: BASO % 0.3 % (0.0-1.0); EOS # 0.3 10*3/uL (0.0-0.4); HEMATOCRIT 32.2 % (37.0-47.0); HEMOGLOBIN 10.3 g/dl (12.0-16.0); LYMPH # 1.2 10*3/uL (1.3-4.4); LYMPH % 17.9 % (27.0-41.0); MEAN CELL VOLUME 102.9 fl (81.0-99.0); MEAN CORPUSCULAR HGB 32.9 pg (27.0-31.0); MEAN PLATELET VOLUME 12.1 fl (9.6-12.3); MONO # 0.6 10*3/uL (0.1-1.0); NEUT # 4.6 10*3/uL (2.3-7.9); NEUT % 67.3 % (47.0-73.0); PLATELET COUNT AUTOMATED 161 10*3/uL (130-400); RED BLOOD COUNT 3.13 10*6/uL (4.10-5.10); WHITE BLOOD COUNT 6.8 10*3/uL (4.8-10.8)
[2017-10-15 07:04] LABS: ALBUMIN 2.3 gm/dl (3.1-4.5); CREATININE 7.65 mg/dL (0.55-1.02); PHOSPHOROUS 4.4 mg/dL (2.5-4.9); POTASSIUM 4.3 mmol/L (3.5-5.1)
[2017-10-16] VITALS: BP 134/36
[2017-10-16 08:00] VITALS: BP 116/41
[2017-10-16 12:00] VITALS: BP 154/44
[2017-10-16 16:00] VITALS: BP 155/43
[2017-10-16 20:00] VITALS: BP 146/36
[2017-10-17] VITALS: BP 130/33
[2017-10-17 08:00] VITALS: BP 149/58
[2017-10-17] MEDS ORDERED: VIBRAMYCIN100 MG PO (13:40)
== END 2017-10-17 13:57 | disposition home or self-care (01) | DRG 564 ==
LOC: ED 09:38 → 5E 11:44 → EDHOLD 11:44 → 5E 12:17
PROVIDERS: Internal Medicine; Nurse Practitioner Family; Student in an Organized Health Care Education/Training Program
PROC: 5A1D70Z Performance of Urinary Filtration, Intermittent, Less than 6 Hours Per Day (ICD-10-PCS; principal; 2017-10-12)
PROC: 02PYX3Z Removal of Infusion Device from Great Vessel, External Approach (ICD-10-PCS; 2017-10-15)
DX: T79.6XXA Traumatic ischemia of muscle, initial encounter (principal); E43 Unspecified severe protein-calorie malnutrition; N18.6 End stage renal disease; N39.0 Urinary tract infection, site not specified; N17.9 Acute kidney failure, unspecified; I12.0 Hypertensive chronic kidney disease with stage 5 chronic kidney disease or end stage renal disease; T85.71XA Infection and inflammatory reaction due to peritoneal dialysis catheter, initial encounter; L89.511 Pressure ulcer of right ankle, stage 1; E11.36 Type 2 diabetes mellitus with diabetic cataract; E11.22 Type 2 diabetes mellitus with diabetic chronic kidney disease; R31.9 Hematuria, unspecified; D72.823 Leukemoid reaction; D53.9 Nutritional anemia, unspecified; E87.8 Other disorders of electrolyte and fluid balance, not elsewhere classified; R74.0 Nonspecific elevation of levels of transaminase and lactic acid dehydrogenase [LDH]; R74.8 Abnormal levels of other serum enzymes; R89.7 Abnormal histological findings in specimens from other organs, systems and tissues; E11.65 Type 2 diabetes mellitus with hyperglycemia; I48.0 Paroxysmal atrial fibrillation; H26.9 Unspecified cataract; E66.01 Morbid (severe) obesity due to excess calories; I95.9 Hypotension, unspecified; E83.41 Hypermagnesemia; E78.1 Pure hyperglyceridemia; E83.39 Other disorders of phosphorus metabolism; Z66 Do not resuscitate; Z51.5 Encounter for palliative care; W18.39XA Other fall on same level, initial encounter; B96.89 Other specified bacterial agents as the cause of diseases classified elsewhere; Z79.899 Other long term (current) drug therapy; Z79.4 Long term (current) use of insulin; Z82.49 Family history of ischemic heart disease and other diseases of the circulatory system; Z84.89 Family history of other specified conditions; Z99.81 Dependence on supplemental oxygen; Z68.39 Body mass index [BMI] 39.0-39.9, adult; Y83.8 Other surgical procedures as the cause of abnormal reaction of the patient, or of later complication, without mention of misadventure at the time of the procedure; Y92.238 Other place in hospital as the place of occurrence of the external cause

== ENCOUNTER → 2020-07-09 | Outpatient (CLI) | payer MEDICARE ==
[~2020-07-09] MED LIST changes: +CALCIUM ACETAT667 M2 PO; +DOXYCYCLINE100 M3 PO; +ELIQUIS2.5 M1 PO; +ELIQUIS5 M1 PO; +LASIX40 MG PO; +LISINOPRIL5 MG PO; +Lopressor25 MG PO; +MUCINEX ER600 MG PO; +NOVOLIN 70100 UNIT/1 SC; +PROPAFENONE HC150 MG PO; +VIBRAMYCIN100 MG PO
[2020-07-09 10:01] LABS: BASO % 0.6 % (0.0-1.0); EOS # 0.2 10*3/uL (0.0-0.4); EOS % 4.3 % (1.0-4.0); HEMATOCRIT 34.6 % (37.0-47.0); LYMPH # 1.5 10*3/uL (1.3-4.4); LYMPH % 29.7 % (27.0-41.0); MEAN CELL VOLUME 103.3 fl (81.0-99.0); MEAN CORPUSCULAR HGB 32.8 pg (27.0-31.0); MEAN CORPUSCULAR HGB CONC 31.8 g/dl (33.0-37.0); MEAN PLATELET VOLUME 10.6 fl (9.6-12.3); MONO # 0.7 10*3/uL (0.1-1.0); NEUT # 2.7 10*3/uL (2.3-7.9); NEUT % 51.8 % (47.0-73.0); PLATELET COUNT AUTOMATED 253 10*3/uL (130-400); RED BLOOD COUNT 3.35 10*6/uL (4.10-5.10); RED CELL DISTRI WIDTH 14.3 % (0-14.5); RETICULOCYTE % 3.48 % (0.50-2.50); WHITE BLOOD COUNT 5.2 10*3/uL (4.8-10.8)
[2020-07-09 10:26] LABS: ALBUMIN 2.9 gm/dl (3.1-4.5); CREATININE 5.03 mg/dL (0.55-1.02); POTASSIUM 4.2 mmol/L (3.5-5.1); TOTAL PROTEIN 7.1 gm/dL (6.4-8.2)
[2020-07-09 10:31] LABS: THYROID STIM HORMONE (HS) 4.1 uIU/ml (0.358-4.75)
== END | disposition home or self-care (01) ==
LOC: LAB 09:22
PROVIDERS: ATTEND Family Medicine
DX: E55.9 Vitamin D deficiency, unspecified (principal); R79.89 Other specified abnormal findings of blood chemistry; R53.83 Other fatigue; Z79.899 Other long term (current) drug therapy

== ENCOUNTER → 2021-02-05 | Outpatient (CLI) | payer MEDICARE ==
[~2021-02-05] MED LIST changes: +LEVOFLOXACIN750 M2 PO; +VIBRA-TAB100 MG PO
== END | disposition home or self-care (01) ==
LOC: RAD 12:06
PROVIDERS: ATTEND Family Medicine
DX: R07.9 Chest pain, unspecified (principal)

== ENCOUNTER 2021-02-24 20:54 | Emergency (ER) | payer MEDICARE ==
[~2021-02-24] VITALS: Ht 154.9 cm; Wt 95.3 kg
[2021-02-24 21:17] LABS: BASO # 0.1 10*3/uL (0.0-0.1); BASO % 0.4 % (0.0-1.0); EOS # 0.1 10*3/uL (0.0-0.4); EOS % 0.8 % (1.0-4.0); HEMATOCRIT 34.4 % (37.0-47.0); LYMPH # 1.6 10*3/uL (1.3-4.4); LYMPH % 14.6 % (27.0-41.0); MEAN CELL VOLUME 100.6 fl (81.0-99.0); MEAN CORPUSCULAR HGB 31.9 pg (27.0-31.0); MEAN CORPUSCULAR HGB CONC 31.7 g/dl (33.0-37.0); MONO % 9.3 % (3.0-9.0); NEUT # 8.3 10*3/uL (2.3-7.9); NEUT % 74.5 % (47.0-73.0); PLATELET COUNT AUTOMATED 304 10*3/uL (130-400); RED BLOOD COUNT 3.42 10*6/uL (4.10-5.10); RED CELL DISTRI WIDTH 15.2 % (0-14.5); WHITE BLOOD COUNT 11.1 10*3/uL (4.8-10.8)
[2021-02-24 21:34] LABS: ALBUMIN 2.7 gm/dl (3.1-4.5); TOTAL PROTEIN 7.4 gm/dL (6.4-8.2)
[2021-02-24 21:52] LABS: POTASSIUM 5.5 mmol/L (3.5-5.1)
[2021-02-28] MEDS ORDERED: AMLODIPINE BESYL5 MG PO (18:51)
[2021-02-28] MEDS ORDERED: FUROSEMIDE80 MG PO (18:52)
[2021-02-28] MEDS ORDERED: LISINOPRIL10 M1 PO (18:52)
[2021-02-28] MEDS ORDERED: ROPINIROLE HYDRO1 MG PO (22:24)
== END 2021-02-25 05:24 | disposition home or self-care (01) ==
LOC: ED 20:54
PROVIDERS: Internal Medicine
DX: E11.22 Type 2 diabetes mellitus with diabetic chronic kidney disease (principal); N18.6 End stage renal disease; E11.65 Type 2 diabetes mellitus with hyperglycemia; E88.09 Other disorders of plasma-protein metabolism, not elsewhere classified; D64.9 Anemia, unspecified; E87.8 Other disorders of electrolyte and fluid balance, not elsewhere classified; R79.82 Elevated C-reactive protein (CRP); Z99.2 Dependence on renal dialysis; Z79.899 Other long term (current) drug therapy

== ENCOUNTER 2022-03-26 15:03 | Emergency (ER) | payer MEDICARE ==
[~2022-03-26] VITALS: Wt 85.3 kg
[~2022-03-26 15:03] MED LIST changes: +AMLODIPINE BESYL5 MG PO; +FUROSEMIDE80 MG PO; +LISINOPRIL10 M1 PO; +ROPINIROLE HYDRO1 MG PO
[2022-03-26 16:05] LABS: BASO % 0.3 % (0.0-1.0); EOS % 0.1 % (1.0-4.0); HEMATOCRIT 39.5 % (37.0-47.0); LYMPH # 1.1 10*3/uL (1.3-4.4); LYMPH % 15.1 % (27.0-41.0); MEAN CELL VOLUME 104.5 fl (81.0-99.0); MEAN CORPUSCULAR HGB 32.3 pg (27.0-31.0); MEAN CORPUSCULAR HGB CONC 30.9 g/dl (33.0-37.0); MEAN PLATELET VOLUME 11.9 fl (9.6-12.3); MONO # 0.9 10*3/uL (0.1-1.0); MONO % 13.3 % (3.0-9.0); NEUT % 70.6 % (47.0-73.0); PLATELET COUNT AUTOMATED 175 10*3/uL (130-400); RED BLOOD COUNT 3.78 10*6/uL (4.10-5.10); RED CELL DISTRI WIDTH 18.1 % (0-14.5)
[2022-03-26 16:18] LABS: ACT PARTIAL THROMBO TIME 33.5 SECONDS (20.0-32.1); INTERNATIONAL NORM RATIO 1.4 (2.0-3.5)
[2022-03-26 16:20] LABS: POTASSIUM 4.2 mmol/L (3.4-5.1); TOTAL PROTEIN 6.5 gm/dL (6.0-8.0)
== END 2022-03-26 21:47 | disposition short-term general hospital (02) ==
LOC: ED 15:03
PROVIDERS: Emergency Medicine
DX: I21.4 Non-ST elevation (NSTEMI) myocardial infarction (principal); Z79.899 Other long term (current) drug therapy

== ENCOUNTER 2022-04-19 13:39 | Inpatient (IN) | payer MEDICARE ==
[~2022-04-19] VITALS: Ht 152.4 cm; Wt 81.4 kg
[2022-04-19 13:46] VITALS: BP 134/56
[2022-04-19 14:18] LABS: BASO % 0.6 % (0.0-1.0); EOS # 0.1 10*3/uL (0.0-0.4); EOS % 1.4 % (1.0-4.0); HEMATOCRIT 36.8 % (37.0-47.0); LYMPH # 0.9 10*3/uL (1.3-4.4); MEAN CELL VOLUME 105.4 fl (81.0-99.0); MEAN CORPUSCULAR HGB 33.8 pg (27.0-31.0); MEAN CORPUSCULAR HGB CONC 32.1 g/dl (33.0-37.0); MEAN PLATELET VOLUME 12.5 fl (9.6-12.3); MONO # 0.6 10*3/uL (0.1-1.0); MONO % 12.2 % (3.0-9.0); NEUT # 3.3 10*3/uL (2.3-7.9); NEUT % 66.4 % (47.0-73.0); PLATELET COUNT AUTOMATED 113 10*3/uL (130-400); RED BLOOD COUNT 3.49 10*6/uL (4.10-5.10); RED CELL DISTRI WIDTH 19.4 % (0-14.5); WHITE BLOOD COUNT 4.9 10*3/uL (4.8-10.8)
[2022-04-19 14:34] LABS: POTASSIUM 3.2 mmol/L (3.4-5.1); TOTAL PROTEIN 6.2 gm/dL (6.0-8.0)
[2022-04-19] MEDS ORDERED: CALCIUM ACETAT667 MG PO (14:56)
[2022-04-19] MEDS ORDERED: ATORVASTATIN CA40 M1 PO (14:57)
[2022-04-19] MEDS ORDERED: REQUIP2 MG PO (15:05)
[2022-04-19] MEDS ORDERED: 8 HOUR650 MG PO (15:06)
[2022-04-19] MEDS ORDERED: ELIQUIS2.5 M1 PO (15:07)
[2022-04-19] MEDS ORDERED: NEPHRO VITAMIN0.8 MG PO (15:08)
[2022-04-19] MEDS ORDERED: CLOPIDOGREL75 MG PO (15:08)
[2022-04-19] MEDS ORDERED: BUMETANIDE2 MG PO (15:09)
[2022-04-19 16:50] LABS: ABG BASE EXCESS 3.3 mmol/L (-2.0-2.0); ARTERIAL BLOOD GAS PH 7.427 (7.35-7.45); ARTERIAL BLOOD GAS PO2 67.9 (80-90)
[2022-04-19 19:58] VITALS: BP 133/59
[2022-04-19 21:00] VITALS: BP 116/65
[2022-04-20] VITALS: BP 114/57
[2022-04-20 06:28] LABS: BASO % 0.7 % (0.0-1.0); EOS # 0.1 10*3/uL (0.0-0.4); EOS % 2.5 % (1.0-4.0); HEMATOCRIT 36.1 % (37.0-47.0); LYMPH % 23.3 % (27.0-41.0); MEAN CELL VOLUME 105.9 fl (81.0-99.0); MEAN CORPUSCULAR HGB 33.4 pg (27.0-31.0); MEAN CORPUSCULAR HGB CONC 31.6 g/dl (33.0-37.0); MEAN PLATELET VOLUME 12.7 fl (9.6-12.3); MONO # 0.6 10*3/uL (0.1-1.0); MONO % 12.7 % (3.0-9.0); NEUT # 2.6 10*3/uL (2.3-7.9); NEUT % 60.3 % (47.0-73.0); PLATELET COUNT AUTOMATED 122 10*3/uL (130-400); RED BLOOD COUNT 3.41 10*6/uL (4.10-5.10); RED CELL DISTRI WIDTH 19.2 % (0-14.5); WHITE BLOOD COUNT 4.3 10*3/uL (4.8-10.8)
[2022-04-20 06:39] LABS: FREE T4 0.99 ng/dl (0.89-1.76); POTASSIUM 3.3 mmol/L (3.4-5.1); THYROID STIM HORMONE (HS) 3.361 uIU/ml (0.550-4.780); TOTAL PROTEIN 5.8 gm/dL (6.0-8.0)
[2022-04-20 07:23] LABS: VITAMIN D, 25-HYDROXY 30.9 ng/mL (30-100)
[2022-04-20 08:00] VITALS: BP 115/43
[2022-04-20 12:00] VITALS: BP 99/54
[2022-04-20] MEDS ORDERED: Humalog SQ (12:47)
[2022-04-20] MEDS ORDERED: CITALOPRAM20 MG PO (12:55)
== END 2022-04-20 15:05 | DRG 280 ==
LOC: ED 13:39 → EDHOLD 16:11 → 4E 16:11
PROVIDERS: Emergency Medicine; Student in an Organized Health Care Education/Training Program; ADMIT Family Medicine; ATTEND Family Medicine
PROC: 5A1D70Z Performance of Urinary Filtration, Intermittent, Less than 6 Hours Per Day (ICD-10-PCS; principal; 2022-04-20)
DX: I13.2 Hypertensive heart and chronic kidney disease with heart failure and with stage 5 chronic kidney disease, or end stage renal disease (principal); E43 Unspecified severe protein-calorie malnutrition; I21.A1 Myocardial infarction type 2; I50.31 Acute diastolic (congestive) heart failure; N18.6 End stage renal disease; J96.01 Acute respiratory failure with hypoxia; Z20.822 Contact with and (suspected) exposure to COVID-19; Z66 Do not resuscitate; D50.9 Iron deficiency anemia, unspecified; E55.9 Vitamin D deficiency, unspecified; E87.6 Hypokalemia; R41.81 Age-related cognitive decline; R13.10 Dysphagia, unspecified; D53.9 Nutritional anemia, unspecified; D69.6 Thrombocytopenia, unspecified; E11.65 Type 2 diabetes mellitus with hyperglycemia; I48.0 Paroxysmal atrial fibrillation; E78.1 Pure hyperglyceridemia; E11.22 Type 2 diabetes mellitus with diabetic chronic kidney disease; Z99.2 Dependence on renal dialysis; Z79.4 Long term (current) use of insulin; Z82.49 Family history of ischemic heart disease and other diseases of the circulatory system; Z79.1 Long term (current) use of non-steroidal anti-inflammatories (NSAID); Z79.899 Other long term (current) drug therapy; I25.2 Old myocardial infarction

== ENCOUNTER 2022-04-22 12:56 | Inpatient (IN) | payer MEDICARE ==
[~2022-04-22] VITALS: Wt 85.9 kg
[2022-04-22] VITALS (11 sets, daily range): BP systolic 44–99; BP diastolic 13–73
[~2022-04-22 12:56] MED LIST changes: +8 HOUR650 MG PO; +ATORVASTATIN CA40 M1 PO; +BUMETANIDE2 MG PO; +CALCIUM ACETAT667 MG PO; +CITALOPRAM20 MG PO; +CLOPIDOGREL75 MG PO; +Humalog SQ; +NEPHRO VITAMIN0.8 MG PO; +REQUIP2 MG PO
[2022-04-22 13:47] LABS: HEMATOCRIT 37.1 % (37.0-47.0); MEAN CELL VOLUME 108.5 fl (81.0-99.0); MEAN CORPUSCULAR HGB 33.9 pg (27.0-31.0); MEAN CORPUSCULAR HGB CONC 31.3 g/dl (33.0-37.0); MEAN PLATELET VOLUME 12.7 fl (9.6-12.3); PLATELET COUNT AUTOMATED 119 10*3/uL (130-400); RED BLOOD COUNT 3.42 10*6/uL (4.10-5.10); RED CELL DISTRI WIDTH 19.7 % (0-14.5); WHITE BLOOD COUNT 6.9 10*3/uL (4.8-10.8)
[2022-04-22 13:48] LABS: MANUAL DIFF REFLEX YES
[2022-04-22 14:05] LABS: ABG BASE EXCESS -3.4 mmol/L (-2.0-2.0); ARTERIAL BLOOD GAS PH 7.341 (7.35-7.45); ARTERIAL BLOOD GAS PO2 74.9 (80-90)
[2022-04-22 14:09] LABS: BURR CELLS FEW; OVALOCYTES FEW; POLYCHROMASIA SLIGHT; SPHEROCYTES FEW; TOTAL CELLS COUNTED 100 #CELLS
[2022-04-22 14:11] LABS: PLATELET SUFFICIENCY LOW (NORMAL); POTASSIUM 3.5 mmol/L (3.4-5.1); TOTAL PROTEIN 6.1 gm/dL (6.0-8.0)
== END 2022-04-22 21:49 | disposition hospice, inpatient (51) | DRG 280 ==
LOC: ED 12:56 → EDHOLD 15:53 → 4E 19:02
PROVIDERS: Emergency Medicine; ADMIT Internal Medicine; ATTEND Internal Medicine
DX: I21.4 Non-ST elevation (NSTEMI) myocardial infarction (principal); E43 Unspecified severe protein-calorie malnutrition; J96.01 Acute respiratory failure with hypoxia; N18.6 End stage renal disease; E87.20 Acidosis, unspecified; I13.2 Hypertensive heart and chronic kidney disease with heart failure and with stage 5 chronic kidney disease, or end stage renal disease; Z66 Do not resuscitate; I50.9 Heart failure, unspecified; E11.22 Type 2 diabetes mellitus with diabetic chronic kidney disease; D53.9 Nutritional anemia, unspecified; E11.65 Type 2 diabetes mellitus with hyperglycemia; D69.6 Thrombocytopenia, unspecified; D50.9 Iron deficiency anemia, unspecified; Z51.5 Encounter for palliative care; Z82.49 Family history of ischemic heart disease and other diseases of the circulatory system; Z79.1 Long term (current) use of non-steroidal anti-inflammatories (NSAID); Z79.899 Other long term (current) drug therapy

== ENCOUNTER 2022-04-22 22:03 | Inpatient (IN) | payer OTHER ==
[~2022-04-22] VITALS: Ht 152.4 cm; Wt 85.3 kg
[2022-04-22 21:40] VITALS: BP 103/54
[2022-04-23] VITALS: BP 89/47
[2022-04-23 08:00] VITALS: BP 83/47
[2022-04-23 12:00] VITALS: BP 88/47
[2022-04-23 20:00] VITALS: BP 73/15
[2022-04-24] VITALS: BP 50/21
== END 2022-04-24 04:24 ==
LOC: 4E 22:03
PROVIDERS: ADMIT Internal Medicine; ATTEND Internal Medicine
DX: I21.4 Non-ST elevation (NSTEMI) myocardial infarction (principal); E43 Unspecified severe protein-calorie malnutrition; J96.01 Acute respiratory failure with hypoxia; N18.6 End stage renal disease; E87.20 Acidosis, unspecified; I13.2 Hypertensive heart and chronic kidney disease with heart failure and with stage 5 chronic kidney disease, or end stage renal disease; I50.9 Heart failure, unspecified; D53.9 Nutritional anemia, unspecified; D69.6 Thrombocytopenia, unspecified; R73.9 Hyperglycemia, unspecified; R77.8 Other specified abnormalities of plasma proteins; Z66 Do not resuscitate; I48.91 Unspecified atrial fibrillation; Z51.5 Encounter for palliative care; Z68.35 Body mass index [BMI] 35.0-35.9, adult; Z99.2 Dependence on renal dialysis